=== PATIENT | female | born 1950 | race Caucasian/White ===

== ENCOUNTER 2019-04-05 11:22 | Emergency (ER) | payer MEDICARE, BC ==
[~2019-04-05] VITALS: Ht 157.5 cm; Wt 73.7 kg
[~2019-04-05 11:22] MED LIST: IBUP800T48 PO
[2019-04-05 11:28] VITALS: Ht 157.5 cm; Wt 73.7 kg
[2019-04-05] MEDS ORDERED: SOD CHLORIDE 0.9% 1,000 ML IV STA (11:44)
--- NOTE | 2019-04-05 12:54 | ERD ---
ER Documentation Chief Complaint Chief Complaint HAD SYNCOPAL EPISODE, HAS LEFT KNEE PAIN HPI 68-year-old female who presents to the emergency room with left knee pain and a syncopal episode. The patient states that earlier just prior to arrival she was trying to have a bowel movement. She was constipated and straining. The [employer] ent states that she stood up and within less than a minute she collapsed to the ground. The patient did have a mild prodrome. She had no prodrome of headache chest pain or shortness of breath. Patient is now complaining of moderate throbbing left knee pain that is worse with movement. Patient had transient epistaxis but no significant pain to the nose. She denies headache. ROS All systems reviewed and are negative except as per history of present illness. Medications Home Meds Active Scripts Ibuprofen* (Motrin*) 800 Mg Tab, 800 MG PO Q6H PRN for PAIN AND OR ELEVATED TEMP, #30 TAB Prov:PIPE EDGE MD 04/05/19 PMhx/Soc History of Surgery: Yes (L upper lobe CA ) Anesthesia Reaction: No Hx Neurological Disorder: No Hx Respiratory Disorders: No Hx Cardiac Disorders: Yes (HLD) Hx Psychiatric Problems: Yes (anxiety) Hx Miscellaneous Medical Probl: Yes (hypothyroid) Hx Alcohol Use: No Hx Substance Use: No Hx Tobacco Use: Yes Smoking Status: Former smoker Physical Exam Vitals Vital Signs Date Temp Pulse Resp B/P (MAP) Pulse Ox O2 O2 Flow FiO2 Time Delivery Rate 04/05/19 97.4 79 18 116/60 99 11:28 (78) Physical Exam General: Well developed, well nourished, no acute distress Head: Normocephalic, atraumatic. Eyes: Pupils equally reactive, EOM intact ENT: Moist mucous membranes Neck: Supple, no lymphadenopathy, no midline tenderness, deformities, step-offs to the cervical spine, full active and passive range of motion without midline pain. Respiratory: Lungs clear bilaterally, no distress Cardiovascular: RRR, no murmurs, rubs, or gallops Abdominal: Soft, non-tender, non-distended, no peritoneal signs : Deferred MSK: The patient has soft tissue tenderness and slight patella varsha of the left lower extremity. The patient's extensor tendon function is mostly intact with some slight weakness. Patient is neurovascular intact distally to the left lower extremity. No ligamentous or tendinous instability noted. Neurologic: Alert and oriented, moving all extremities, normal speech, no focal weakness, no cerebellar signs Skin: No rash Psych: Normal mood Result Diagram: 04/05/19 1203 04/05/19 1203 Results 24 hrs Laboratory Tests Test 04/05/19 12:03 White Blood Count 7.3 10^3/ul Red Blood Count 4.36 10^6/ul Hemoglobin 12.7 g/dl Hematocrit 38.5 % Mean Corpuscular Volume 88.3 fl Mean Corpuscular Hemoglobin 29.1 pg Mean Corpuscular Hemoglobin Concent 33.0 g/dl Red Cell Distribution Width 12.5 % Platelet Count 282 10^3/UL Mean Platelet Volume 11.8 fl Immature Granulocytes % 0.300 % Neutrophils % 79.8 % Lymphocytes % 10.0 % Monocytes % 8.3 % Eosinophils % 0.8 % Basophils % 0.8 % Nucleated Red Blood Cells % 0.0 /100WBC Immature Granulocytes # 0.020 10^3/ul Neutrophils # 5.8 10^3/ul Lymphocytes # 0.7 10^3/ul Monocytes # 0.6 10^3/ul Eosinophils # 0.1 10^3/ul Basophils # 0.1 10^3/ul Nucleated Red Blood Cells # 0.0 10^3/ul Sodium Level 140 mmol/L Potassium Level 4.3 mmol/L Chloride Level 106 mmol/L Carbon Dioxide Level 28 mmol/L Anion Gap 6 Blood Urea Nitrogen 16 mg/dl Creatinine 0.70 mg/dl Est Glomerular Filtrat Rate mL/min > 60 mL/min Glucose Level 118 mg/dl Calcium Level 9.5 mg/dl Troponin I < 0.012 ng/ml Current Medications Medications Dose Sig/Charles Start Time Status Last (Trade) Ordered Route PRN Stop Time Admin Dose Reason Admin Sodium 1,000 ml @ Q1H STAT 04/05/19 DC Chloride 1,000 mls/hr IV 11:44 04/05/19 12:43 Procedures/MDM EKG, MONITORS, & DIAGNOSTIC IMAGING: EKG: I reviewed and interpreted a 12-lead EKG. Rhythm: Normal sinus rhythm ST Changes: No contiguous ST segment elevations T waves: No contiguous T wave inversions Impression: No evidence of acute cardiac ischemia x-ray left knee: I reviewed and interpreted multiple views of the x-ray Bones: Transverse, slightly comminuted and displaced patellar fracture with patella varsha Soft tissue: No evidence of foreign body PROCEDURES: PROCEDURES: Splint Application Note: Splint type: Knee immobilizer Extremity: Left leg Indication: Patella fracture The patient was consented at bedside prior to splint application and states understanding of risks, benefits, and alternatives. The patient was n eurovascularly intact prior to and status post application of the splint. The patient tolerated the procedure well and there were no complications. LAB INTERPRETATION: I reviewed the laboratory testing and it shows no evidence of acute process MEDICAL DECISION MAKING: The patient gives a very excellent history that is very consistent with vasovagal syncope. She was straining to have a bowel movement stood up and had a fainting episode. The patient exhibited no signs or symptoms concerning for serious etiology of syncope. Patient does have some knee pain, x-ray imaging would be indicated. We discussed closed head injury precautions. The patient exhibits no signs or symptoms concerning for clinically significant traumatic brain injury. I believe the risks of radiation outweigh the benefits. Patient would like to defer CT imaging. The patient does not meet high-risk criteria and based on NEXUS cervical spine criteria there is no indication for cervical spine imaging at this time. ER COURSE: * Patient's pain is well controlled at this time. She took NSAIDs just prior to arrival. Laboratory testing is reassuring. * Diagnostic imaging reveals a closed patellar fracture. The patient was placed in a knee immobilizer and given crutches. Her primary care was notified to facilitate outpatient orthopedic follow-up. * At this time the patient's pain is well controlled. She is stable to be safely discharged. CONSULTATION: None DISPOSITION PLAN: The patient does not have an identifiable emergent medical condition that warrants inpatient hospitalization at this time. The patient is deemed safe for discharge with outpatient follow-up. We discussed follow up with the patient's primary care doctor within 24 to 48 hours as needed. We also discussed return to the emergency room for worsening symptoms or worsening condition. Outpatient referral: None required Discharge Medications: Motrin Departure Diagnosis: Primary Impression: Vasovagal syncope Additional Impression: Closed fracture of left patella Encounter type: initial encounter Fracture morphology: comminuted Fracture alignment: displaced Qualified Codes: S82.042A - Displaced comminuted fracture of left patella, initial encounter for closed fracture Condition: Stable Patient Instructions: Patella Fracture, Syncope, Vasovagal Additional Instructions: Call your primary care doctor TOMORROW for an appointment during the next 1 WEEK.Tell the secretary of state that you were referred from this facility.See the doctor sooner or return here if your condition worsens before your appointment time. PIPE EDGE MD Apr 05, 2019 12:54
[2019-04-05 13:15] VITALS: BP 97/58; PULSE 67; RESP 18
== END 2019-04-05 14:52 | disposition home or self-care (01) ==
LOC: E/R 11:22
DX: R55 Syncope and collapse (principal); S82.042A Displaced comminuted fracture of left patella, initial encounter for closed fracture; E03.9 Hypothyroidism, unspecified; X58.XXXA Exposure to other specified factors, initial encounter; Y92.9 Unspecified place or not applicable; Z87.891 Personal history of nicotine dependence; Z85.118 Personal history of other malignant neoplasm of bronchus and lung
CPT/HCPCS: 29505; 36415; 73562; 80048; 84484; 85025; 93005; 99284; J7030